=== PATIENT | male | born 1975 | race Caucasian/White ===

== ENCOUNTER 2016-10-01 08:34 | Emergency (ER) | payer OTHER, BC ==
[~2016-10-01] VITALS: Ht 177.8 cm; Wt 128.5 kg
--- OUTSIDE RECORDS SUMMARY | 2016-10-01 08:36 | XMS REPORT | Continuity of Care Document ---
Author Author [facility] Organization [facility] Address Unknown Phone Unavailable Care Team Providers Care Exhibit Carpenter Name Role Phone Primary Care Physician Unavailable Source Comments Some departments are not documenting in the electronic medical record. If you do not see the information that you expected, contact Release of Information in the Health Information Management department at [phone] for further assistance in locating additional records.[facility] Active Allergies and Adverse Reactions No Known Allergies Current Medications Prescription Sig. Disp. Refills Start End Date Status Date furosemide (LASIX) 20 mg Take 20 mg by mouth twice Active tablet daily. potassium 10 mEq twice daily. Active phentermine(+) 37.5 mg Take 37.5 mg by mouth Active tablet every morning. Active Problems Problem Noted Date Obesity 03/16/2011 Social History Tobacco Use Types Packs/Day Years Used Date Never Smoker Alcohol Use Drinks/Week oz/Week Comments No Last Filed Vital Signs Vital Sign Reading Time Taken Blood Pressure 117/72 03/16/2011 1:09 PM CDT Pulse 75 03/16/2011 1:09 PM CDT Temperature - - Respiratory Rate 16 03/16/2011 1:09 PM CDT Height 1.803 m (5' 11") 03/16/2011 1:09 PM CDT Weight 110.678 kg (244 lb) 03/16/2011 1:09 PM CDT Body Mass Index 34.05 03/16/2011 1:09 PM CDT Oxygen Saturation - - Plan of Care Health Maintenance Due Date Last Done Comments Physical (Comprehensive) 1981 Exam Pertussis Vaccine 1985 Tetanus Vaccine 1991 Influenza Vaccine 01/19/2017 03/16/2011 (Declined) Results from Last 3 Months Not on file
[2016-10-01 08:43] VITALS: Ht 177.8 cm; Wt 128.5 kg
--- NOTE | 2016-10-01 08:51 | NUR ---
DR AYALA IN
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
[2016-10-01] MEDS ORDERED: NORMAL SALINE 1,000 ML IV ONE (08:59)
--- NOTE | 2016-10-01 09:15 | NUR ---
TO CT PER CART
--- NOTE | 2016-10-01 09:20 | NUR ---
RETURNED FROM CT
--- OUTSIDE RECORDS SUMMARY | 2016-10-01 09:22 | XMS REPORT | Continuity of Care Document ---
Author Author [facility] Organization [facility] Address Unknown Phone Unavailable Care Team Providers Care Tnt Powder Worker Name Role Phone Primary Care Physician Unavailable Source Comments Some departments are not documenting in the electronic medical record. If you do not see the information that you expected, contact Release of Information in the Health Information Management department at [phone] for further assistance in locating additional records.[facility] Active Allergies and Adverse Reactions No [...]
[2016-10-01 09:52] LABS: BASOPHILS % (AUTO) 0.4 % (0-2); EOSINOPHILS # (AUTO) 0.1 T/MM3 (0-0.5); EOSINOPHILS % (AUTO) 1.2 % (0-4); HCT - HEMATOCRIT 40.9 % (41-53); HGB - HEMOGLOBIN 14.1 GM/DL (13.5-17.5); IMMATURE GRANULOCYTE # (AUTO) 0.02 T/MM3 (0.00-0.03); IMMATURE GRANULOCYTE % (AUTO) 0.3 % (0.0-0.5); LYMPHOCYTES # (AUTO) 1.6 T/MM3 (1-4.8); LYMPHOCYTES % (AUTO) 21.4 % (23-45); MEAN CORPUSCULAR HGB 31.1 UUG (26-34); MEAN CORPUSCULAR HGB CONC(MCHC 34.5 GM/DL (31-37); MEAN CORPUSCULAR VOLUME 90.3 UM3 (80-100); MEAN PLATELET VOLUME 10.7 UM3 (9.4-12.4); MONOCYTES # (AUTO) 0.4 T/MM3 (0-0.8); MONOCYTES % (AUTO) 5.8 % (0-9.0); NEUTROPHILS #(AUTO)-ABSOLUTE 5.1 T/MM3 (1.8-7.7); NEUTROPHILS % (AUTO) 70.9 % (33-66); RED BLOOD COUNT 4.53 M/MM3 (4.50-5.90); WBC - WHITE BLOOD COUNT 7.3 T/MM3 (4.5-11.0)
[2016-10-01 10:04] LABS: ALBUMIN 4.7 G/DL (3.5-5.0); ALBUMIN/GLOBULIN RATIO 1.7 RATIO (1.1-2.2); ALKALINE PHOSPHATASE 78 U/L (38-126); ALT (SGPT) 53 U/L (21-72); ANION GAP 12 MEQ/L (5-15); AST (SGOT) 40 U/L (17-59); BUN/CREATININE RATIO 19 RATIO (6-26); CALCIUM 9.1 MG/DL (8.4-10.2); CHLORIDE 106 MEQ/L (98-107); CO2 - CARBON DIOXIDE 23 MEQ/L (22-30); CREATININE 0.9 MG/DL (0.8-1.5); GLOMERULAR FILTRATION RATE 93; GLUCOSE 99 MG/DL (75-110); POTASSIUM 4.4 MEQ/L (3.6-5); SODIUM 141 MEQ/L (134-144); TOTAL PROTEIN 7.5 G/DL (6.3-8.2)
--- NOTE | 2016-10-01 10:18 | NUR ---
TO [facility] PER CART
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
--- NOTE | 2016-10-01 10:40 | NUR ---
RETURNED FROM [facility]
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
--- NOTE | 2016-10-01 10:55 | NUR ---
SKIN SOME RED AREAS NOTED ON HEAD & SM WOUND BEHIND RT EAR. Addendum: 10/01/16 at 1104 by JESUS ALBERTO CORRECT LOCATION IS BEHIND L EAR
[2016-10-01 11:00] VITALS: TEMP 98.5
[2016-10-01 11:05] LABS: BLOOD, URINE NEGATIVE (NEGATIVE); COLOR,URINE YELLOW (YELLOW); LEUKOCYTE ESTERASE ,URINE NEGATIVE (NEGATIVE); NITRITE,URINE NEGATIVE (NEGATIVE); UROBILINOGEN,URINE 0.2 EU/DL (NORMAL)
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
--- NOTE | 2016-10-01 11:18 | NUR ---
DR AYALA IN
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
[2016-10-01] MEDS ORDERED: METH-310 PO (11:26)
[2016-10-01] MEDS ORDERED: OXYC1TAB8 PO (11:26)
[2016-10-01 11:41] VITALS: BP 121/82; PULSE 67; RESP 16; O2SAT 98
--- NOTE | 2016-10-01 11:41 | NUR ---
DISCHARGE WRITTEN INSTRUCTIONS WITH ROBAXIN AND PERCOCET RX REVIEWED AND SENT WITH PT. PT VERBALIZES UNDERSTANDING OF DI AND MEDICATIONS, DENIES QUESTIONS. REPORTS PAIN 05/30 ON DISMISSAL. PT AMBULATES OUT OF ER WITH STEADY GAIT ACCOMP BY FAMILY AT THIS TIME.
== END 2016-10-01 11:41 | disposition home or self-care (01) ==
LOC: ED 08:34
DX: S80.02XA Contusion of left knee, initial encounter (principal); S40.812A Abrasion of left upper arm, initial encounter; V43.53XA Car driver injured in collision with pick-up truck in traffic accident, initial encounter; Y93.89 Activity, other specified; Y92.410 Unspecified street and highway as the place of occurrence of the external cause; Y99.8 Other external cause status
CPT/HCPCS: 36415; 71020; 72125; 72170; 73060; 73562; 80053; 81003; 85025; 96360; 99284; J7030